=== PATIENT | male | born 1970 | race Caucasian/White ===

== ENCOUNTER 2019-07-23 19:28 | Emergency (ER) | payer SELFPAY ==
[~2019-07-23] VITALS: Ht 165.1 cm; Wt 81.6 kg
--- NOTE | 2019-07-23 19:28 | NUR ---
PT NATY BLS. TAKEN TO BED 7
[2019-07-23 19:34] VITALS: BP 99/62
--- NOTE | 2019-07-23 19:40 | NUR ---
48 Y/O M BIBA FROM [facility] WITH C/O ETOH. PT REPORTS HAVING DRANK 5 TALL CANS OF BEER THROUGHT THE DAY. PT HAS SLURRED SPEECH. ABLE TO ANSWER QUESTIONS APPROPIATELY. PT ATTACHED TO MONITORING SYSTEM. BEDRAILS X2. BED IN LOWEST POSITON. WILL CONTINUE TO MONITOR.
--- NOTE | 2019-07-23 21:05 | NUR ---
PT SEEN WITH EYES CLOSED AND HEARD SNORING. VISIBLE CHEST RISE AND FALL NOTED. VSS AT THIS TIME. BEDRAILX2 UP. WILL CONTINUE TO MONITOR.
--- NOTE | 2019-07-23 21:41 | NUR ---
PT GIVEN URINAL TO USE RESTROOM.
--- NOTE | 2019-07-23 22:28 | NUR ---
PT STATES THAT WHEN DISCHARGED HIS WOULD BE ABLE TO RETRIEVE HIM. PT UNABLE TO PROVIDE NUMBER AT THIS TIME.
--- NOTE | 2019-07-23 23:27 | NUR ---
PT SEEN WITH EYES CLOSED. VISIBLE CHEST RISE AND FALL NOTED. AROUABLE TO TOUCH AND VOICE. BEDRAILX2 UP. WILL CONTINUE TO MONITOR.
--- NOTE | 2019-07-24 01:25 | NUR ---
PT SLEEPING AT THIS TIME. AROUSABLE TO TOUCH AND NAME. VSS. BEDRAILS X2 UP. WILL CONTINUE TO MONITOR.
--- NOTE | 2019-07-24 02:32 | NUR ---
DR. BYRNE AT BEDSIDE EVALUTING PT.
--- NOTE | 2019-07-24 03:00 | NUR ---
PT ROADTESTED. PT ABLE TO AMBULATE WITH STEADY GAIT.
--- NOTE | 2019-07-24 03:10 | NUR ---
PT REPORTS MOVING TO [place] FROM [place] AND MOVING INTO A [facility]. PT WAS RECENTLY ASKED TO LEAVE [facility] DUE TO DRINKING HABITS. PT CURRENTLY HOMELESS AT THIS TIME.
[2019-07-24 03:30] VITALS: BP 95/60
--- NOTE | 2019-07-24 03:31 | NUR ---
PT PROVIDED WITH DISCHARGE PAPERWORK, HOMELESS AND SUBSTANCE ABUSE RESOURCES. MEAL AND BUS PASS PROVIDED FOR PT. PT AMBULATORY WITH STEADY GAIT OBSERVED. ADVISED TO F/U WITH PCP.
== END 2019-07-24 03:31 | disposition home or self-care (01) ==
LOC: MED 19:28
DX: F10.129 Alcohol abuse with intoxication, unspecified (principal)
CPT/HCPCS: 99283